=== PATIENT | male | born 1935 | race Caucasian/White ===

== ENCOUNTER 2021-07-27 20:13 | Emergency (ER) | payer MEDICARE, OTHER ==
[~2021-07-27] VITALS: Ht 162.6 cm; Wt 86.4 kg
[2021-07-27 20:52] LABS: BASO % 0.3 % (0.0-2.0); EOS # 0.1 K/mm3 (0.0-0.7); EOS % 0.9 % (0.0-4.0); GRAN # 8.4 K/mm3 (1.4-6.5); HEMOGLOBIN 11.9 g/dl (13.5-18.0); LYMPH # 0.7 K/mm3 (1.2-3.4); LYMPH % 7.3 % (20.0-51.0); MEAN CELL VOLUME 101 fl (80.0-100.0); MEAN CORPUSCULAR HEMOGLOBIN 34 pg (27-31); MEAN CORPUSCULAR HGB CONC 33 g/dl (33.0-37.0); MEAN PLATELET VOLUME 10.4 fl (7.4-10.4); MONO # 0.6 K/mm3 (0.1-0.6); MONO % 6.2 % (1.7-9.3); PLATELET COUNT 187 K/mm3 (130-400); RED BLOOD COUNT 3.53 M/mm3 (4.20-5.60); REDCELL DISTRIBUTION WIDTH-CV 12.3 % (11.5-14.5)
[2021-07-27 20:53] LABS: HEMATOCRIT 35.6 % (42.0-52.0)
[2021-07-27 21:10] LABS: ALBUMIN 3.7 gm/dL (3.4-4.8); BILIRUBIN,TOTAL 0.7 mg/dL (0.2-1.2); CALCIUM 8.6 mg/dL (8.4-10.2); CREATININE, serum 1.43 mg/dL (0.72-1.25); POTASSIUM 4.2 mmol/L (3.5-4.5); TOTAL PROTEIN 6.4 gm/dL (6.2-8.1)
[2021-07-27] MEDS ORDERED: LEVAQUIN 5500 MG/TA1 PO (22:43)
[2021-07-27 22:48] VITALS: TEMP 98.3
[2021-07-27 23:17] VITALS: BP 106/51; PULSE 75
== END 2021-07-27 23:20 | disposition home or self-care (01) ==
LOC: COL.ER 20:13
PROVIDERS: Personal Emergency Response Attendant
DX: J18.9 Pneumonia, unspecified organism (principal); Z87.891 Personal history of nicotine dependence; Z88.0 Allergy status to penicillin
CPT/HCPCS: J0456; J0696; J7030; J7050

== ENCOUNTER 2021-08-04 09:22 | Emergency (ER) | payer MEDICARE, OTHER ==
[~2021-08-04] VITALS: Ht 162.6 cm; Wt 68.2 kg
[~2021-08-04 09:22] MED LIST: LEVAQUIN 5500 MG/TA1 PO
[2021-08-04 10:34] LABS: BASO # 0.1 K/mm3 (0.0-0.2); BASO % 0.7 % (0.0-2.0); EOS # 0.2 K/mm3 (0.0-0.7); EOS % 2.7 % (0.0-4.0); GRAN # 3.8 K/mm3 (1.4-6.5); GRAN % 50.8 % (42.2-75.2); HEMATOCRIT 38.4 % (42.0-52.0); HEMOGLOBIN 12.9 g/dl (13.5-18.0); LYMPH # 2.6 K/mm3 (1.2-3.4); LYMPH % 35.4 % (20.0-51.0); MEAN CELL VOLUME 100 fl (80.0-100.0); MEAN CORPUSCULAR HEMOGLOBIN 33 pg (27-31); MEAN CORPUSCULAR HGB CONC 34 g/dl (33.0-37.0); MEAN PLATELET VOLUME 10.5 fl (7.4-10.4); MONO # 0.8 K/mm3 (0.1-0.6); MONO % 10.1 % (1.7-9.3); PLATELET COUNT 264 K/mm3 (130-400); RED BLOOD COUNT 3.86 M/mm3 (4.20-5.60); REDCELL DISTRIBUTION WIDTH-CV 12.4 % (11.5-14.5)
[2021-08-04 10:42] LABS: ALANINE AMINOTRANSFERASE 10 U/L (0-55); ALBUMIN 3.9 gm/dL (3.4-4.8); ALKALINE PHOSPHATASE 40 U/L (40-150); ANION GAP 10 mmol/L (7-16); AST,SGOT 15 U/L (5-34); BILIRUBIN,TOTAL 0.6 mg/dL (0.2-1.2); BLOOD UREA NITROGEN 26 mg/dL (8-26); CARBON DIOXIDE 23 mmol/L (23-31); CHLORIDE 106 mmol/L (98-107); CREATININE, serum 1.48 mg/dL (0.72-1.25); GLUCOSE 118 mg/dL (70-99); POTASSIUM 4.1 mmol/L (3.5-4.5); SODIUM 139 mmol/L (136-145); TOTAL PROTEIN 6.8 gm/dL (6.2-8.1)
[2021-08-04 10:50] LABS: TROPONIN-I < 0.010 ng/mL (0.00-0.033)
[2021-08-04 11:34] LABS: COLLECTION METHOD CLEAN CATCH
[2021-08-04 11:43] LABS: PH 6 (5-8); SQUAMOUS EPITHELIAL None Seen /hpf (0-10); URINE APPEARANCE Clear (CLEAR/HAZY); URINE BACTERIA None Seen /hpf (NONE SEEN); URINE BILIRUBIN Negative (NEGATIVE); URINE BLOOD Negative (NEGATIVE); URINE COLOR Straw (YELLOW); URINE GLUCOSE Negative (NEGATIVE); URINE KETONE Negative (NEGATIVE); URINE LEUKOCYTE ESTERASE Negative (NEGATIVE); URINE NITRATE Negative (NEGATIVE); URINE PROTEIN(semi-quant) Negative (NEGATIVE); URINE RBC 0-2 /hpf (0-2); URINE UROBILINOGEN Negative (NEGATIVE)
[2021-08-04] MEDS ORDERED: ALBUTEROL0.83 MG/ML IH (14:39)
[2021-08-04] MEDS ORDERED: NEB MC (14:39)
[2021-08-04 15:07] VITALS: BP 169/94; PULSE 70; TEMP 97.8
== END 2021-08-04 15:10 | disposition home or self-care (01) ==
LOC: COL.ER 09:22
PROVIDERS: Physician Assistant
DX: J98.11 Atelectasis (principal); Z87.891 Personal history of nicotine dependence; Z20.822 Contact with and (suspected) exposure to COVID-19
CPT/HCPCS: J1100; J7030; Q9967

== ENCOUNTER 2021-08-20 11:04 | Emergency (ER) | payer MEDICARE, OTHER ==
[~2021-08-20] VITALS: Ht 162.6 cm; Wt 63.6 kg
[~2021-08-20 11:04] MED LIST changes: +ALBUTEROL0.83 MG/ML IH; +NEB MC
[2021-08-20 11:12] VITALS: TEMP 98
[2021-08-20 12:07] LABS: BASO # 0.1 K/mm3 (0.0-0.2); BASO % 0.8 % (0.0-2.0); EOS # 0.1 K/mm3 (0.0-0.7); EOS % 0.9 % (0.0-4.0); GRAN # 8.2 K/mm3 (1.4-6.5); GRAN % 78.7 % (42.2-75.2); HEMOGLOBIN 12.3 g/dl (13.5-18.0); LYMPH # 1.3 K/mm3 (1.2-3.4); LYMPH % 12.2 % (20.0-51.0); MEAN CELL VOLUME 101 fl (80.0-100.0); MEAN CORPUSCULAR HEMOGLOBIN 34 pg (27-31); MEAN CORPUSCULAR HGB CONC 34 g/dl (33.0-37.0); MEAN PLATELET VOLUME 10.7 fl (7.4-10.4); MONO # 0.7 K/mm3 (0.1-0.6); PLATELET COUNT 238 K/mm3 (130-400); RED BLOOD COUNT 3.62 M/mm3 (4.20-5.60); REDCELL DISTRIBUTION WIDTH-CV 12.5 % (11.5-14.5)
[2021-08-20 12:12] LABS: HEMATOCRIT 36.4 % (42.0-52.0)
[2021-08-20 12:13] LABS: ALANINE AMINOTRANSFERASE 8 U/L (0-55); ALBUMIN 3.8 gm/dL (3.4-4.8); ALKALINE PHOSPHATASE 51 U/L (40-150); ANION GAP 10 mmol/L (7-16); AST,SGOT 16 U/L (5-34); BILIRUBIN,TOTAL 0.7 mg/dL (0.2-1.2); BLOOD UREA NITROGEN 23 mg/dL (8-26); CARBON DIOXIDE 24 mmol/L (23-31); CHLORIDE 108 mmol/L (98-107); CREATININE, serum 1.52 mg/dL (0.72-1.25); GLUCOSE 140 mg/dL (70-99); POTASSIUM 4.3 mmol/L (3.5-4.5); SODIUM 142 mmol/L (136-145); TOTAL PROTEIN 6.4 gm/dL (6.2-8.1)
[2021-08-20 12:20] LABS: TROPONIN-I < 0.010 ng/mL (0.00-0.033)
[2021-08-20 14:01] VITALS: BP 132/67; PULSE 68
--- NOTE | 2021-08-20 15:49 | NUR ---
scrap yard worker met with patient in ER after receiving consult. This is the patients third ER visit in the past 30 days. Patients daughter Dolores ([phone]) is present at bedside. Patient lives with his daughter and son in law. His daughter states that she has to help the patient with showering and getting dressed but the patient can eat and go to the bathroom independently. He is able to ambulate with the assistance of a walker. Patient has no home oxygen needs. PCP is Dr. Naranjo. Daughter states that they are new patients to him and have only had one visit. He utilizes [facility] for medications. Talked with the patient and his daughter about home health and what that would look like. Both are in agreement that this is something that he would benefit from. [employer] list provided and his daughter verbalizes that she would like to establish with [facility]. Referral information faxed to Aarti at [facility]. Phone message left for 's nurse that the patient was seen and that a referral was faxed to [facility].
--- NOTE | 2021-08-26 12:45 | NUR ---
early childhood worker spoke with Dr Gross's nurse, Lamont, and faxed clinical information from the ED visit. Lamont will send home health orders for correction, physical and occupational therapies to [facility].
== END 2021-08-20 14:01 | disposition home or self-care (01) ==
LOC: COL.ER 11:04
PROVIDERS: Personal Emergency Response Attendant
DX: R55 Syncope and collapse (principal); R94.4 Abnormal results of kidney function studies
CPT/HCPCS: J7040

== ENCOUNTER 2021-12-27 20:41 | Inpatient (IN) | payer MEDICARE, OTHER ==
[~2021-12-27] VITALS: Ht 162.6 cm; Wt 66.2 kg
[~2021-12-27 20:41] MED LIST changes: -DULCOLAX S10 MG/SUPP RC; -LOTENSIN 1010 MG/TAB PO; -MIRALAX PA17 GM/Dose PO; -PROSCAR 5MG5 MG PO; -TYLENOL 500MG500 MG PO
[2021-12-27 21:23] LABS: BASO % 0.3 % (0.0-2.0); EOS % 0.3 % (0.0-4.0); HEMATOCRIT 38.1 % (42.0-52.0); HEMOGLOBIN 12.7 g/dl (13.5-18.0); LYMPH # 2.2 K/mm3 (1.2-3.4); MEAN CELL VOLUME 104 fl (80.0-100.0); MEAN CORPUSCULAR HEMOGLOBIN 35 pg (27-31); MEAN CORPUSCULAR HGB CONC 33 g/dl (33.0-37.0); MEAN PLATELET VOLUME 10.3 fl (7.4-10.4); MONO % 8.1 % (1.7-9.3); PLATELET COUNT 206 K/mm3 (130-400); RED BLOOD COUNT 3.66 M/mm3 (4.20-5.60); REDCELL DISTRIBUTION WIDTH-CV 12.4 % (11.5-14.5)
[2021-12-27 21:40] LABS: BILIRUBIN,TOTAL 0.8 mg/dL (0.2-1.2); C-REACTIVE PROTEIN 0.28 mg/dL (0.00-0.50); CALCIUM 9.5 mg/dL (8.4-10.2); CREATININE, serum 1.41 mg/dL (0.72-1.25); POTASSIUM 4.3 mmol/L (3.5-4.5); TOTAL PROTEIN 6.8 gm/dL (6.2-8.1)
[2021-12-27] MEDS ORDERED: LOTENSIN 1010 MG/TAB PO (22:41)
[2021-12-27] MEDS ORDERED: TYLENOL 500MG500 MG PO (22:42)
[2021-12-27] MEDS ORDERED: PROSCAR 5MG5 MG PO (22:42)
[2021-12-28] VITALS (7 sets, daily range): BP systolic 103–128; BP diastolic 48–70; PULSE 58–88; TEMP 98–99.3
[2021-12-28 06:13] LABS: BASO % 0.4 % (0.0-2.0); EOS # 0.1 K/mm3 (0.0-0.7); EOS % 0.5 % (0.0-4.0); GRAN # 7.6 K/mm3 (1.4-6.5); HEMOGLOBIN 10.8 g/dl (13.5-18.0); LYMPH # 2.5 K/mm3 (1.2-3.4); MEAN CELL VOLUME 104 fl (80.0-100.0); MEAN CORPUSCULAR HEMOGLOBIN 35 pg (27-31); MEAN CORPUSCULAR HGB CONC 33 g/dl (33.0-37.0); MEAN PLATELET VOLUME 10.8 fl (7.4-10.4); MONO # 1.1 K/mm3 (0.1-0.6); MONO % 9.8 % (1.7-9.3); PLATELET COUNT 173 K/mm3 (130-400); RED BLOOD COUNT 3.11 M/mm3 (4.20-5.60); REDCELL DISTRIBUTION WIDTH-CV 12.5 % (11.5-14.5)
[2021-12-28 06:21] LABS: HEMATOCRIT 32.4 % (42.0-52.0)
[2021-12-28 06:38] LABS: CALCIUM 8.6 mg/dL (8.4-10.2); CREATININE, serum 1.19 mg/dL (0.72-1.25); MAGNESIUM 1.9 mg/dL (1.6-2.6); POTASSIUM 4.4 mmol/L (3.5-4.5)
--- NOTE | 2021-12-28 09:44 | NUR ---
Initial visit; Patient and his appeared glad to see Refrigeration Operator and were waiting for patient's Physician to discern what will happen next concerning what his health issues and what care will be taken. Patient will look forward to seeing Refrigeration Operator later.
--- NOTE | 2021-12-28 10:08 | NUR ---
PT UP TO BR WITH ASSIST X1, HAD INCONTINENT STOOL. PROVIDED CARES ASSISTED IN CLEAN UP WITH INCONTINENT EPISODE. MEPLEX APPLIED TO LEFT ELBOW SKIN TEAR.
--- NOTE | 2021-12-28 11:11 | NUR ---
NOTIFIED ANA GARVIN LEFT VOICE MAIL FOR CONSULT FOR CAYETANO AND URINARY RETENTION.
--- NOTE | 2021-12-28 13:25 | NUR ---
company laundry worker contacted patient's daughter Dolores via phone to complete intake due to the patient's dementia. Per Dolores, patient moved in with her and her at their home this past April. Dolores reports that he is independent with using the restroom and feeding himself, but she had to help him with showering, dressing a grooming. Patient utilizes a FWW to assist with mobility. He has no home oxygen needs. PCP is and Dolores states they just saw him for an appointment last week. He utilizes [facility] for prescriptions. Per Dolores, the patient does have a DP- estbalished listing herself but a copy cannot be found in his EMR. She reports that they had home health established this past spring for the patient and were going through [facility] but they are not currently established. Patient will return home with his daughter and son in law once medically ready for DC. Discharge plan: Home with family
--- NOTE | 2021-12-28 20:00 | NUR ---
PATIENT IS CONFUSED AND HAS HX OF DEMENTIA. VSS ON TELE. PATIENT C/O INTERMITTENT ABD PAIN/CRAMPING. SCAN SHOWED ILEUS AND LARGE AMOUNTS OF STOOL/AIR IN BOWL. DAUGHTER REPORTS PATIENT HAD SMALL, LOOSE LIQUID STOOL TODAY. PASSING FLATUS. ABD IS ROUND, SOFT AND WITH HYPO BOWL SOUNDS. APPLIED WARM BLANKET TO ABD. AVOIDING NARCOTICS. HUYNH TO DD WITH MOD AMOUNTS OF CLEAR YELLOW URINE NOTED. IV FLUIDS INFUSING VIA PUMP INTO RIGHT FORARM IV. NO C/O N/V. HEAD TO TOE ASSESSMENT COMPLETE. NO OTHER NEEDS AT THIS TIME. DAUGHTER STAYING THE NIGHT WITH PATIENT. CALL LIGHT IN REACH.
--- NOTE | 2021-12-28 22:20 | NUR ---
HOSPITALIST CALLED BACK, NO ORDERS FOR STOOL SOFTNERS OR LAXATIVES AT THIS TIME. SURGERY TO BE CONSULTED IN THE AM DUE TO ILEUS NOTED ON SCAN. SEE HOSPITALIST NOTES.
--- NOTE | 2021-12-28 22:30 | NUR ---
CALLED HOSPITALIST ABOUT RECENT ORDER ENTERED TO REMOVE HUYNH IN AM. UROLOGY SPECIFICALLY WANTS HUYNH TO REMAIN INPLACE FOR URINARY RETENTION, SEE NOTE. NURSING INSTRUCTED TO LEAVE HUYNH INPLACE AND FOLLOW UROLOGY DIRECTION WITH REGUARDS TO HUYNH
[2021-12-29] VITALS (7 sets, daily range): BP systolic 97–132; BP diastolic 49–61; PULSE 56–105; TEMP 97.5–98.7
--- NOTE | 2021-12-29 03:00 | NUR ---
PATIENT'S DAUGHTER CALLED OUT STATING HE FEELS LIKE HE NEEDS TO HAVE A BM. PATIENT ASSISTED INTO BATHROOM WITH 1-2 ASSIST AND WALKER. PATIENT HAS A SHUFFLED GAIT AND IS WEAK. PATIENT FATIGUES EASILY. NOTED SMALL, SKID AGUILERA OF LIQUID AND SOFT FORM STOOL. PATIENT CONTINUES TO C/O FEELING BLOATED AND LIKE HE NEEDS TO HAVE A BM. PATIENT IS PASSING LOTS OF FOUL SMEELING FLATUS. PATIENT'S DAUGHTER WANTED TO GO FOR WALK IN HALLS HOWEVER PATIENT IS VERY WEAK, FATIGUED AND CAN NOT TOLERATE AMBULATING FARTHER THAN ACCROSS HIS ROOM. SEE PT/OT EVAL NOTES. PATIENT DID AMBULATE TO BATHROOM AND THEN ACCROSS ROOM TO BEDSIDE CHAIR. DAUGHTER AT BEDSIDE. CALL LIGHT IN REACH.
--- NOTE | 2021-12-29 08:54 | NUR ---
PT RESTING IN BED SURGICAL CONSULT CALLED TO DR. QUINTANA. NEW ORDERS RECIEVED FROM KARLA FALL FOR CARDS.
--- NOTE | 2021-12-29 09:34 | NUR ---
Follow-up visit; Patient states he is better than he was last night when asked by Biodiesel Product Development Manager how he is doing this morning. His daughter is with him and offering comfort and support. Biodiesel Product Development Manager will continue to look in on
--- NOTE | 2021-12-29 14:13 | NUR ---
PT HAD LG SOFT FORMED STOOL. PASSING GAS ALSO.
--- NOTE | 2021-12-29 14:19 | NUR ---
PT AND SON REFUSING ENEMA OR SUPPOSITORY AT THIS TIME. PT REPORTS FEELING MUCH BETTER AFTER HAVING LARGE BOWEL MOVEMENT.
--- NOTE | 2021-12-30 00:10 | NUR ---
PATIENT IN BED ON ROOM ENTRY. ALERT BUT CONFUSED. HS MEDS PER EMAR. DAUGHTER HAD CONCERNS ABOUT PATIENT DEVELOPING PNEUMONIA AND PRN IS PROVIDED AND PATIENT DEMONSTRATED APPROPRIATE USE SEVERAL TIMES. HUYNH TO DD WITH CLEAR YELLOW URINE. IVF INFUSING TO R FA IV WITHOUT ISSUE. DENIES ADDITIONAL NEEDS. CALL LIGHT IN REACH. DAUGHTER AT BEDSIDE.
[2021-12-30 04:12] VITALS: BP 120/54; BP 120/554; PULSE 68; TEMP 98.1
[2021-12-30 06:37] LABS: BASO # 0.1 K/mm3 (0.0-0.2); BASO % 0.7 % (0.0-2.0); EOS # 0.2 K/mm3 (0.0-0.7); EOS % 2.4 % (0.0-4.0); GRAN % 57.8 % (42.2-75.2); HEMOGLOBIN 10.7 g/dl (13.5-18.0); LYMPH # 2.5 K/mm3 (1.2-3.4); MEAN CELL VOLUME 105 fl (80.0-100.0); MEAN CORPUSCULAR HEMOGLOBIN 35 pg (27-31); MEAN CORPUSCULAR HGB CONC 33 g/dl (33.0-37.0); MEAN PLATELET VOLUME 11.6 fl (7.4-10.4); MONO # 0.9 K/mm3 (0.1-0.6); MONO % 9.9 % (1.7-9.3); PLATELET COUNT 165 K/mm3 (130-400); RED BLOOD COUNT 3.08 M/mm3 (4.20-5.60); REDCELL DISTRIBUTION WIDTH-CV 12.6 % (11.5-14.5)
[2021-12-30 06:40] LABS: HEMATOCRIT 32.2 % (42.0-52.0)
[2021-12-30 06:52] LABS: ALBUMIN 2.9 gm/dL (3.4-4.8); CALCIUM 8.8 mg/dL (8.4-10.2); CREATININE, serum 1.17 mg/dL (0.72-1.25); MAGNESIUM 1.9 mg/dL (1.6-2.6); PHOSPHOROUS 2.7 mg/dL (2.3-4.7); POTASSIUM 3.7 mmol/L (3.5-4.5)
[2021-12-30 07:31] VITALS: BP 124/57; PULSE 64; TEMP 97.8
--- NOTE | 2021-12-30 08:00 | NUR ---
PATIENT IS ALERT AND ORIENTED X2. PATIENT HAS HX OF DEMENTIA AND DISPLAYS SOME CONFUSION/FORGETFULNESS AT BASELINE. PATIENT IS SITTING UP IN BED WITH BREAKFAST TRAY IN A GREAT MOOD. PATIENT REPORTS HIS ABD PAIN IS SO MUCH BETTER. PATIENT HAD TWO VERY LARGE BM'S YESTERDAY. AND IS ROUND, SOFT AND WITH POSITIVE BOWL SOUNDS. PATIENT PASSING GAS AND DENIES ANY PAIN OR N/V. AM MEDS GIVEN. TOLERATING CLEAR LIQUID DIET. IV FLUIDS INFUSING VIA PUMP INTO RIGHT FORARM IV. HUYNH TO DD WITH MOD AMOUNTS OF CLEAR YELLOW URINE NOTED. DAUGHTER REPORTED PATIENT WAS COUGHING THROUGH THE NIGHT LAST NIGHT. A&P LUNG GONZALEZ ARE CLEAR IN UPPER LOBES, NOTED MILD CONGESTION IN POSTERIOR BASES. NO COUGH NOTED THIS AM. ENCOURAGED I.S. PT/OT CONSULTED. HEAD TO TOE ASSESSMENT COMPLETE. NOTED SKIN ISSUES, SEE SHIFT ASSESSMENT. NO OTHER NEEDS AT THIS TIME. DAUGHTER AT BEDSIDE. CALL LIGHT IN REACH. BED ALARM ON.
[2021-12-30 11:48] VITALS: BP 101/53; PULSE 58; TEMP 97.7
--- NOTE | 2021-12-30 11:55 | NUR ---
HOSPITALIST TEAM ROUNDING. PLAN TO ADVANCE DIET TODAY AND POSSIBLE DISCHARGE HOME WITH DAUGHTER TOMORROW. SEE ORDERS.
[2021-12-30 15:43] VITALS: BP 101/45; PULSE 59; TEMP 97.7
--- NOTE | 2021-12-30 16:20 | NUR ---
REPORTED OFF TO JAGRUTI TERESA.
--- NOTE | 2021-12-30 16:45 | NUR ---
RECEIVED CHANGE OF SHIFT REPORT FROM DAY SHIFT RN.
[2021-12-30 20:04] VITALS: BP 114/54; PULSE 71; TEMP 99.6
[2021-12-31 00:08] VITALS: BP 123/62; PULSE 64; TEMP 97.7
[2021-12-31 04:10] VITALS: BP 126/64; PULSE 61; TEMP 98.8
[2021-12-31 06:24] LABS: BASO # 0.1 K/mm3 (0.0-0.2); BASO % 0.6 % (0.0-2.0); EOS # 0.4 K/mm3 (0.0-0.7); EOS % 4.3 % (0.0-4.0); GRAN # 4.6 K/mm3 (1.4-6.5); GRAN % 54.6 % (42.2-75.2); HEMOGLOBIN 10.1 g/dl (13.5-18.0); LYMPH # 2.6 K/mm3 (1.2-3.4); LYMPH % 30.4 % (20.0-51.0); MEAN CELL VOLUME 104 fl (80.0-100.0); MEAN CORPUSCULAR HEMOGLOBIN 35 pg (27-31); MEAN CORPUSCULAR HGB CONC 34 g/dl (33.0-37.0); MEAN PLATELET VOLUME 11.3 fl (7.4-10.4); MONO # 0.8 K/mm3 (0.1-0.6); MONO % 9.9 % (1.7-9.3); PLATELET COUNT 161 K/mm3 (130-400); RED BLOOD COUNT 2.85 M/mm3 (4.20-5.60); REDCELL DISTRIBUTION WIDTH-CV 12.5 % (11.5-14.5)
[2021-12-31 06:28] LABS: HEMATOCRIT 29.5 % (42.0-52.0)
[2021-12-31 06:47] LABS: ALBUMIN 2.7 gm/dL (3.4-4.8); CALCIUM 8.6 mg/dL (8.4-10.2); CREATININE, serum 1.16 mg/dL (0.72-1.25); MAGNESIUM 1.8 mg/dL (1.6-2.6); PHOSPHOROUS 2.9 mg/dL (2.3-4.7); POTASSIUM 3.9 mmol/L (3.5-4.5)
--- NOTE | 2021-12-31 07:08 | NUR ---
CHANGE OF SHIFT REPORT GIVEN TO DAY SHIFT RNIQRA.
[2021-12-31 08:00] VITALS: BP 137/73; PULSE 66; TEMP 98.3
[2021-12-31] MEDS ORDERED: MIRALAX PA17 GM/Dose PO ×2 (08:11→08:20)
[2021-12-31] MEDS ORDERED: DULCOLAX S10 MG/SUPP RC (08:20)
--- NOTE | 2021-12-31 09:32 | NUR ---
has been in to see patient, daughter was present. Discharge instructions reviewed with pt and daughter. Daughter verbalized understanding. Pt has been up with therapy, walked greater than 150 ft. Did well, shuffling gait with walker. Pt denies having any pain. Telemetry notified of discharge and telemetry removed. Int removed from right forearm. Pt did ambulated to the restroom and had large soft formed bowel movement. Discussed continuing the laxatives at home.
== END 2021-12-31 09:51 | disposition home or self-care (01) | DRG 641 ==
LOC: COL.ER 20:41 → SURG 22:42
PROVIDERS: Emergency Medicine; Internal Medicine; Student in an Organized Health Care Education/Training Program; ADMIT Student in an Organized Health Care Education/Training Program
DX: E86.0 Dehydration (principal); N17.9 Acute kidney failure, unspecified; K56.7 Ileus, unspecified; N40.1 Benign prostatic hyperplasia with lower urinary tract symptoms; E86.1 Hypovolemia; F03.90 Unspecified dementia, unspecified severity, without behavioral disturbance, psychotic disturbance, mood disturbance, and anxiety; Z96.653 Presence of artificial knee joint, bilateral; Z96.643 Presence of artificial hip joint, bilateral; K59.00 Constipation, unspecified; I95.9 Hypotension, unspecified; D72.829 Elevated white blood cell count, unspecified; R33.8 Other retention of urine; I12.9 Hypertensive chronic kidney disease with stage 1 through stage 4 chronic kidney disease, or unspecified chronic kidney disease; N18.30 Chronic kidney disease, stage 3 unspecified; R13.10 Dysphagia, unspecified; T46.4X5A Adverse effect of angiotensin-converting-enzyme inhibitors, initial encounter; Z85.828 Personal history of other malignant neoplasm of skin; Z88.6 Allergy status to analgesic agent; Z88.0 Allergy status to penicillin; Z87.891 Personal history of nicotine dependence; Y92.89 Other specified places as the place of occurrence of the external cause; Z23 Encounter for immunization
CPT/HCPCS: OP; G0378; J1644; J7030

== ENCOUNTER → 2021-12-27 | Emergency (ER) | payer MEDICARE, OTHER ==
[~2021-12-27] VITALS: Ht 162.6 cm; Wt 63.6 kg
[~2021-12-27] MED LIST changes: +DULCOLAX S10 MG/SUPP RC; +FLOMAX 0.40.4 MG/CAP PO; +LOTENSIN 1010 MG/TAB PO; +MIRALAX PA17 GM/Dose PO; +PROSCAR 5MG5 MG PO; +TYLENOL 500MG500 MG PO
[2021-12-27 13:11] VITALS: BP 107/68; PULSE 64; TEMP 98.7
[2021-12-27 13:36] LABS: BASO # 0.1 K/mm3 (0.0-0.2); BASO % 0.5 % (0.0-2.0); EOS # 0.1 K/mm3 (0.0-0.7); EOS % 0.5 % (0.0-4.0); GRAN # 7.1 K/mm3 (1.4-6.5); GRAN % 64.5 % (42.2-75.2); HEMATOCRIT 37.7 % (42.0-52.0); HEMOGLOBIN 12.9 g/dl (13.5-18.0); LYMPH # 3.1 K/mm3 (1.2-3.4); LYMPH % 28.2 % (20.0-51.0); MEAN CELL VOLUME 103 fl (80.0-100.0); MEAN CORPUSCULAR HEMOGLOBIN 35 pg (27-31); MEAN CORPUSCULAR HGB CONC 34 g/dl (33.0-37.0); MEAN PLATELET VOLUME 10.5 fl (7.4-10.4); MONO # 0.7 K/mm3 (0.1-0.6); MONO % 6.1 % (1.7-9.3); PLATELET COUNT 214 K/mm3 (130-400); RED BLOOD COUNT 3.67 M/mm3 (4.20-5.60); REDCELL DISTRIBUTION WIDTH-CV 12.4 % (11.5-14.5)
[2021-12-27 13:55] LABS: ALBUMIN 4.1 gm/dL (3.4-4.8); BILIRUBIN,TOTAL 0.8 mg/dL (0.2-1.2); C-REACTIVE PROTEIN 0.1 mg/dL (0.00-0.50); CALCIUM 9.7 mg/dL (8.4-10.2); CREATININE, serum 1.36 mg/dL (0.72-1.25); POTASSIUM 4.1 mmol/L (3.5-4.5)
[2021-12-27 13:57] LABS: COLLECTION METHOD IN
[2021-12-27 14:27] LABS: URINE APPEARANCE Clear (CLEAR/HAZY); URINE COLOR Yellow (YELLOW); URINE GLUCOSE Negative (NEGATIVE); URINE PROTEIN(semi-quant) Negative (NEGATIVE)
[2021-12-27 14:28] LABS: URINE BLOOD Negative (NEGATIVE); URINE KETONE Negative (NEGATIVE); URINE NITRATE Negative (NEGATIVE); URINE UROBILINOGEN 0.2 E.U/dL (0.2-1.0)
[2021-12-27 14:41] LABS: SQUAMOUS EPITHELIAL None Seen /hpf (0-10); URINE BACTERIA None Seen /hpf (NONE SEEN); URINE RBC 0-2 /hpf (0-2)
== END ==
LOC: COL.ER 12:53
PROVIDERS: Emergency Medicine
DX: N40.1 Benign prostatic hyperplasia with lower urinary tract symptoms (principal); K59.00 Constipation, unspecified; Z87.891 Personal history of nicotine dependence
CPT/HCPCS: J7030

== ENCOUNTER 2022-05-13 20:22 | Emergency (ER) | payer MEDICARE, OTHER ==
[~2022-05-13] VITALS: Ht 162.6 cm; Wt 61.4 kg
[~2022-05-13 20:22] MED LIST changes: +DULCOLAX S10 MG/SUPP RC; +LOTENSIN 1010 MG/TAB PO; +MIRALAX PA17 GM/Dose PO; +PROSCAR 5MG5 MG PO; +TYLENOL 500MG500 MG PO
[2022-05-13 22:17] LABS: BASO % 0.5 % (0.0-2.0); EOS % 0.2 % (0.0-4.0); GRAN # 4.4 K/mm3 (1.4-6.5); GRAN % 68.4 % (42.2-75.2); HEMOGLOBIN 12.1 g/dl (13.5-18.0); LYMPH % 15.9 % (20.0-51.0); MEAN CELL VOLUME 103 fl (80.0-100.0); MEAN CORPUSCULAR HEMOGLOBIN 35 pg (27-31); MEAN CORPUSCULAR HGB CONC 33 g/dl (33.0-37.0); MEAN PLATELET VOLUME 11.1 fl (7.4-10.4); MONO % 14.8 % (1.7-9.3); PLATELET COUNT 165 K/mm3 (130-400); REDCELL DISTRIBUTION WIDTH-CV 12.7 % (11.5-14.5)
[2022-05-13 22:18] LABS: HEMATOCRIT 36.2 % (42.0-52.0)
[2022-05-13 22:22] LABS: INR 1.1 (0.8-3.0)
[2022-05-13 22:33] LABS: ALANINE AMINOTRANSFERASE 10 U/L (0-55); ALBUMIN 3.5 gm/dL (3.4-4.8); ALKALINE PHOSPHATASE 45 U/L (40-150); ANION GAP 12 mmol/L (7-16); AST,SGOT 21 U/L (5-34); BILIRUBIN,TOTAL 0.4 mg/dL (0.2-1.2); BLOOD UREA NITROGEN 21 mg/dL (8-26); CALCIUM 8.8 mg/dL (8.4-10.2); CARBON DIOXIDE 21 mmol/L (23-31); CHLORIDE 106 mmol/L (98-107); GLUCOSE 110 mg/dL (70-99); MAGNESIUM 1.8 mg/dL (1.6-2.6); PHOSPHOROUS 2.3 mg/dL (2.3-4.7); POTASSIUM 4.5 mmol/L (3.5-4.5); SODIUM 139 mmol/L (136-145); TOTAL PROTEIN 6.5 gm/dL (6.2-8.1)
[2022-05-13 22:56] LABS: TROPONIN-I < 0.010 ng/mL (0.00-0.033)
[2022-05-13 23:24] LABS: COLLECTION METHOD CATHETER
[2022-05-13 23:28] LABS: PH 6.5 (5.0-8.5); URINE APPEARANCE Clear (CLEAR/HAZY); URINE BLOOD TRACE-INTACT (NEGATIVE); URINE COLOR Yellow (YELLOW); URINE GLUCOSE Negative (NEGATIVE); URINE KETONE Negative (NEGATIVE); URINE NITRATE Negative (NEGATIVE); URINE PROTEIN(semi-quant) TRACE (NEGATIVE); URINE UROBILINOGEN 0.2 E.U/dL (0.2-1.0)
[2022-05-13 23:30] LABS: SQUAMOUS EPITHELIAL 0-2 /hpf (0-10); URINE BACTERIA Rare /hpf (NONE SEEN)
[2022-05-14 02:30] VITALS: BP 112/60; PULSE 86; TEMP 99.8
== END 2022-05-14 02:30 | disposition home or self-care (01) ==
LOC: COL.ER 20:22
PROVIDERS: Emergency Medicine
DX: U07.1 COVID-19 (principal); R41.0 Disorientation, unspecified; D64.9 Anemia, unspecified; R79.89 Other specified abnormal findings of blood chemistry; R31.9 Hematuria, unspecified
CPT/HCPCS: J1885; J7120